=== PATIENT | male | born 1970 | race Caucasian/White ===

== ENCOUNTER 2020-06-01 10:26 | Day surgery (SDC) | payer BC ==
[2020-05-29 12:23] VITALS: BMI 27.1
[2020-06-01] MEDS ORDERED: PROPOFOL 20 ML ONE ×2 (11:40)
[2020-06-01 13:56] VITALS: TEMP 97.8
[2020-06-01 14:11] VITALS: PULSE 71
[2020-06-01 14:38] VITALS: BP 110/59
--- NOTE | 2020-06-05 17:11 | PATH ---
Surgical Pathology Report Patient Name: SEGUNDO SHERMAN [facility]. Rec. #: [id number] /Age/Gender: 1970 (Age: 49) / M Account: [id number] Location: [facility] Taken: 06/01/2020 Received: 06/01/2020 Reported: 06/05/2020 Physicians: Rachelle Ruano M.D. Specimen(s) Received A: RIGHT COLON B: POLYP DESCENDING COLON C: POLYP TRANSVERSE COLON D: TRANSVERSE COLON E: DESCENDING COLON Clinical History Diarrhea Postoperative diagnosis: Polyps, diverticulosis Final Diagnosis A. RIGHT COLON, BIOPSY: COLONIC MUCOSA WITH NO SIGNIFICANT PATHOLOGIC CHANGES. NO EVIDENCE OF ACTIVE COLITIS OR MICROSCOPIC COLITIS. B. DESCENDING COLON POLYP, POLYPECTOMY: TUBULAR ADENOMA. C. TRANSVERSE COLON POLYP, POLYPECTOMY: TUBULAR ADENOMA. D. TRANSVERSE COLON, BIOPSY: COLONIC MUCOSA WITH NO SIGNIFICANT PATHOLOGIC CHANGES. NO EVIDENCE OF ACTIVE COLITIS OR MICROSCOPIC COLITIS. E. DESCENDING COLON, BIOPSY: COLONIC MUCOSA WITH REACTIVE LYMPHOID AGGREGATE IN THE LAMINA PROPRIA. NO EVIDENCE OF ACTIVE COLITIS OR MICROSCOPIC COLITIS. Electronically Signed Radha Partida M.D. Gross Description A. Received in formalin, labeled "right colon" is a foote, irregular portion of soft tissue measuring 0.6 cm. in greatest dimension. The specimen is submitted in toto in one cassette. B. Received in formalin, labeled "polyp ascending colon" are 3 foote, irregular portions of soft tissue averaging 0.4 cm. in greatest dimension. The specimens are submitted in toto in one cassette. C. Received in formalin labeled "transverse colon polyp," is a 0.8 x 0.8 x 0.5 cm foote, polypoid portion of soft tissue. The specimen is bisected and entirely submitted in one cassette. D. Received in formalin, labeled "transverse colon" is a foote, irregular portion of soft tissue measuring 0.4 cm. in greatest dimension. The specimen is submitted in toto in one cassette. E. Received in formalin, labeled "descending colon" is a foote, irregular portion of soft tissue measuring 0.5 cm. in greatest dimension. The specimen is submitted in toto in one cassette. 06/04/2020 saudi/06/04/2020
== END 2020-06-01 14:20 | disposition home or self-care (01) ==
LOC: FASU-ENDO 10:26
PROVIDERS: ATTEND Internal Medicine Gastroenterology
PROC: 0DBL8ZX Excision of Transverse Colon, Via Natural or Artificial Opening Endoscopic, Diagnostic (ICD-10-PCS; 2020-06-01)
PROC: 0DBK8ZX Excision of Ascending Colon, Via Natural or Artificial Opening Endoscopic, Diagnostic (ICD-10-PCS; 2020-06-01)
PROC: 0DBL8ZX Excision of Transverse Colon, Via Natural or Artificial Opening Endoscopic, Diagnostic (ICD-10-PCS; 2020-06-01)
PROC: 0DBM8ZX Excision of Descending Colon, Via Natural or Artificial Opening Endoscopic, Diagnostic (ICD-10-PCS; 2020-06-01)
PROC: 0DBK8ZX Excision of Ascending Colon, Via Natural or Artificial Opening Endoscopic, Diagnostic (ICD-10-PCS; principal; 2020-06-01 12:00)
DX: Z12.11 Encounter for screening for malignant neoplasm of colon (principal); D12.3 Benign neoplasm of transverse colon; D12.4 Benign neoplasm of descending colon; K57.30 Diverticulosis of large intestine without perforation or abscess without bleeding; K63.89 Other specified diseases of intestine; K64.8 Other hemorrhoids
CPT/HCPCS: 88305-TC